=== PATIENT | female | born 1995 | race Caucasian/White ===

== ENCOUNTER → 2018-07-03 16:16 | Outpatient (CLI) | payer MEDICAID, SELFPAY ==
--- NOTE | 2018-07-03 16:25 | MRI_ITS ---
STUDY: MRI LUMBAR SPINE WITHOUT CONTRAST REASON FOR EXAM: Female, 23 years old. Left sciatica TECHNIQUE: Standardized fat and water weighted pulse sequences were obtained in the sagittal and axial planes. COMPARISON: None FINDINGS: T12-L1: Normal endplates. Normal disc height, hydration and morphology. Normal bilateral facet joints. Normal central canal and bilateral lateral recesses. Normal bilateral intervertebral neural foramina. Normal lumbar lordosis. There is no substantial scoliosis. Normal conus medullaris that terminates at L1 L1-2: Normal endplates. Normal disc height, hydration and morphology. Normal bilateral facet joints. Normal central canal and bilateral lateral recesses. Normal bilateral intervertebral neural foramina. L2-3: Normal endplates. Normal disc height, hydration and morphology. Normal bilateral facet joints. Normal central canal and bilateral lateral recesses. Normal bilateral intervertebral neural foramina. L3-4: Normal endplates. Normal disc height, hydration and minimal annular bulge. Normal bilateral facet joints. Normal central canal and bilateral lateral recesses. Normal bilateral intervertebral neural foramina. L4-5: Normal endplates. Normal disc height, desiccation and mild annular bulge in association with left posterolateral/foraminal disc protrusion.. Minor facet arthropathy. Normal central canal. Mild left lateral recess stenosis and moderate neuroforaminal stenosis. Mild right neuroforaminal encroachment L5-S1: Normal endplates. Normal disc height, hydration and morphology. Normal bilateral facet joints. Normal central canal and bilateral lateral recesses. Normal bilateral intervertebral neural foramina. Normal visualized sacral ala. Normal visualized paraspinous soft tissue structures. MRI/Spine Lumbar (Routine) IMPRESSION: Spinal stenosis at L4-5 greater on the left secondary to disc disease and mild facet arthropathy. Minimal annular bulge at L3-4 without spinal stenosis Electronically Signed: Sang Hernandez MD at 19:14 EST , Service support ,
== END ==
PROVIDERS: Family Provider Family Medicine; PCP Family Medicine; Referring Provider Family Medicine; Visit Provider Family Medicine
DX: M54.16 Radiculopathy, lumbar region (principal)
CPT/HCPCS: 72148

== ENCOUNTER → 2020-06-08 10:49 | Outpatient (CLI) | payer MEDICAID, SELFPAY ==
[2020-06-08 09:50] VITALS: BMI 33.5
[2020-06-08 10:55] VITALS: BP 125/74; PULSE 76; RESP 16; TEMP 37.2; O2SAT 95; BMI 33.5
[2020-06-08] MEDS: Dextrose 5%-Lactated Ringers 1,000 ML 999 ML IV (11:12)
[2020-06-08 18:20] LABS: Amphetamine Urine VISTA NEGATIVE (<1000 ng/mL); Barbiturate Urine VISTA NEGATIVE (< 200 ng/mL); Benzodiazepine Urine VISTA NEGATIVE (< 200 ng/mL); Cocaine Urine VISTA NEGATIVE (< 300 ng/mL); Ecstacy Urine VISTA NEGATIVE (< 500 ng/mL); Methadone Urine VISTA NEGATIVE (< 300 ng/mL); PCP Urine VISTA NEGATIVE (< 25 ng/mL); THC Urine VISTA NEGATIVE (< 50 ng/mL); Vista UDS pH Range 5
[2020-06-13 04:08] LABS: Chlamydia By Nucleic Acid AMP Negative (Negative)
[2020-06-13 07:41] LABS: Gonococcus By Nucleic Acid AMP Negative (Negative)
[2020-06-16 11:09] LABS: HPV APTIMA, High Risk Negative (Negative); HPV Reflexed? YES, CHARGE PATIENT
== END ==
PROVIDERS: PCP Family Medicine; Referring Provider Obstetrics & Gynecology; Visit Provider Obstetrics & Gynecology
DX: Z34.90 Encounter for supervision of normal pregnancy, unspecified, unspecified trimester (principal); Z12.4 Encounter for screening for malignant neoplasm of cervix; Z11.3 Encounter for screening for infections with a predominantly sexual mode of transmission; E86.0 Dehydration
CPT/HCPCS: 96361; 96374; 96375; 80307; 87086; 87088; 87491; 87591; 87624; 88175; G0145

== ENCOUNTER → 2020-06-26 09:09 | Outpatient (CLI) | payer MEDICAID, SELFPAY ==
[2020-06-08 10:55] VITALS: BMI 33.5
[2020-06-26 09:34] LABS: Absolute Lymphocyte Count 1.18 X10^3/uL (0.83-4.51); Absolute Neutrophil Count 6.4 X10^3/uL (2.0-7.7); Basophil# 0.02 X10^3/uL; Basophil% 0.2 % (0-1); Eosinophil# 0.12 X10^3/uL; Eosinophils% 1.5 % (0-5); Hematocrit 36.6 % (37-47); Hemoglobin 12.3 g/dL (12.0-15.0); Lymphocyte # 1.18 X10^3/ul (4.0); Lymphocyte % 14.4 % (19-41); Mean Corp Hgb Conc 33.6 g/dL (32-36); Mean Corpuscular Hgb 29.4 pg (27.0-32.0); Mean Corpuscular Volume 87.6 fL (81-99); Mean Platelet Vol. 9.4 fl (6.2-12.0); Monocyte# 0.41 X10^3/uL; NRBC Flagged by Analyzer 0 % (0-5); Neutrophil # 6.43 X10^3/uL (2.7-7.7); Neutrophil % 78.4 % (47-70); Platelet Count 242 K/mm3 (150-450); RBC Distribution Width CV 12.2 % (11.6-14.6); RBC Distribution Width SD 39.5 fl (35.1-43.9); Red Blood Count 4.18 M/mm3 (4.2-5.4); White Blood Count 8.2 K/mm3 (4.4-11.0)
[2020-06-26 09:43] LABS: Glucose Challenge Gest 1H 50g 127 mg/dL (70-140)
[2020-06-26 10:47] LABS: HIV - WCH Non-Reactive (Nonreactive); Hepatitis B Surface Antigen Non-Reactive (Nonreactive); Hepatitis C Antibody Non-Reactive (Nonreactive); Rubella IgG Reactive (Nonreactive); Syphilis Antibodies Non-reactive
== END ==
PROVIDERS: PCP Family Medicine; Referring Provider Obstetrics & Gynecology; Visit Provider Obstetrics & Gynecology
DX: Z34.81 Encounter for supervision of other normal pregnancy, first trimester (principal)
CPT/HCPCS: 36415; 82950; 85025; 86703; 86762; 86803; 86850; 86900; 86901; 87340

== ENCOUNTER → 2020-07-03 12:33 | Outpatient (CLI) | payer MEDICAID, SELFPAY ==
[2020-07-03 10:51] VITALS: BMI 33.5
[2020-07-03 13:17] LABS: Protein, Urine (Random) 8.9 mg/dL (<11.9); Protein:Creat Ratio 38 mg/g CRE (0-200)
== END ==
PROVIDERS: PCP Family Medicine; Referring Provider Obstetrics & Gynecology; Visit Provider Obstetrics & Gynecology
DX: O12.10 Gestational proteinuria, unspecified trimester (principal)
CPT/HCPCS: 82570; 84156

== ENCOUNTER → 2020-10-23 14:03 | Outpatient (CLI) | payer MEDICAID, SELFPAY ==
[2020-09-29 13:52] VITALS: BMI 35.5
[2020-10-23 14:25] LABS: Absolute Lymphocyte Count 1.13 X10^3/uL (0.83-4.51); Absolute Neutrophil Count 6.1 X10^3/uL (2.0-7.7); Basophil# 0.02 X10^3/uL; Basophil% 0.3 % (0-1); Eosinophil# 0.06 X10^3/uL; Eosinophils% 0.8 % (0-5); Hematocrit 33.1 % (37-47); Hemoglobin 11.2 g/dL (12.0-15.0); Lymphocyte # 1.13 X10^3/ul (0.83-4.51); Lymphocyte % 14.3 % (19-41); Mean Corp Hgb Conc 33.8 g/dL (32-36); Mean Corpuscular Hgb 29.2 pg (27.0-32.0); Mean Corpuscular Volume 86.2 fL (81-99); Mean Platelet Vol. 9.2 fl (6.2-12.0); Monocyte# 0.48 X10^3/uL; Monocyte% 6.1 % (0-10); NRBC Flagged by Analyzer 0 % (0-5); Neutrophil # 6.13 X10^3/uL (2.7-7.7); Neutrophil % 77.7 % (47-70); Platelet Count 258 K/mm3 (150-450); RBC Distribution Width CV 12.3 % (11.6-14.6); RBC Distribution Width SD 38.5 fl (35.1-43.9); Red Blood Count 3.84 M/mm3 (4.2-5.4); White Blood Count 7.9 K/mm3 (4.4-11.0)
[2020-10-23 14:42] LABS: Glucose Challenge Gest 1H 50g 117 mg/dL (70-140)
== END ==
PROVIDERS: PCP Family Medicine; Referring Provider Obstetrics & Gynecology; Visit Provider Obstetrics & Gynecology
DX: Z13.1 Encounter for screening for diabetes mellitus (principal); Z3A.25 25 weeks gestation of pregnancy
CPT/HCPCS: 36415; 82950; 85025

== ENCOUNTER → 2020-12-15 15:33 | Outpatient (CLI) | payer MEDICAID, SELFPAY | PROVIDERS: PCP Family Medicine; Referring Provider Obstetrics & Gynecology; Visit Provider Obstetrics & Gynecology | DX: Z34.90 Encounter for supervision of normal pregnancy, unspecified, unspecified trimester (principal) | CPT/HCPCS: 87081 ==

== ENCOUNTER 2021-01-02 17:50 | Outpatient (CLI) | payer MEDICAID, SELFPAY ==
[2021-01-02] VITALS (8 sets, daily range): BP systolic 121–128; BP diastolic 70–77; PULSE 65–148; TEMP 36.2–36.5; O2SAT 82–98; BMI 36.7
--- NOTE | 2021-01-02 21:17 | OB.TRI.PN ---
Progress Notes Date of Service: 01/02/21 Progress Note: Patient presents for triage evaluation secondary to dec fm and ctx FHT: 130 Moderate variability reactive no decelerations category I tracing [place]: q 3-5 Contractions Assessment and plan: dec fm feeling some now Reactive NST, reassuring maternal and status patient discharged to home to follow-up as scheduled, discussedkick counts and labor precautions no significant cervical change. See problem list details for additional plan information. Charges/Coding Procedures Urinary/Genital 52xxx-59xxx: [id number] non-stress test Interp Assessment & Plan (1) False labor:
== END 2021-01-02 21:30 | disposition home or self-care (01) ==
LOC: WPOUT 17:58 → WP 17:59
PROVIDERS: PCP Family Medicine; Visit Provider Obstetrics & Gynecology
DX: O47.9 False labor, unspecified (principal); Z3A.00 Weeks of gestation of pregnancy not specified
CPT/HCPCS: 59050; 99218; G0378

== ENCOUNTER 2021-01-06 23:30 | Inpatient (IN) | payer MEDICAID, SELFPAY ==
[2021-01-06 23:03] VITALS: BP 119/72; PULSE 80; TEMP 36.6; O2SAT 98
[2021-01-06 23:05] VITALS: BMI 35.7
[2021-01-06 23:29] LABS: ROM Internal Control Test YES-OK TO RESULT pt. (Internal QC)
[2021-01-06 23:30] LABS: ROM Patient Test POSITIVE (Negative)
[2021-01-07] VITALS (47 sets, daily range): BP systolic 101–136; BP diastolic 55–85; PULSE 67–181; RESP 16–18; TEMP 36–36.9; O2SAT 96–100
[2021-01-07 00:22] LABS: Absolute Lymphocyte Count 1.41 X10^3/uL (0.83-4.51); Absolute Neutrophil Count 6.5 X10^3/uL (2.0-7.7); Basophil# 0.01 X10^3/uL; Basophil% 0.1 % (0-1); Eosinophil# 0.04 X10^3/uL; Eosinophils% 0.5 % (0-5); Hematocrit 31.1 % (37-47); Hemoglobin 9.9 g/dL (12.0-15.0); Lymphocyte # 1.41 X10^3/ul (0.83-4.51); Lymphocyte % 16.5 % (19-41); Mean Corp Hgb Conc 31.8 g/dL (32-36); Mean Corpuscular Hgb 26.2 pg (27.0-32.0); Mean Corpuscular Volume 82.3 fL (81-99); Mean Platelet Vol. 10.3 fl (6.2-12.0); Monocyte# 0.53 X10^3/uL; Monocyte% 6.2 % (0-10); NRBC Flagged by Analyzer 0 % (0-5); Neutrophil # 6.51 X10^3/uL (2.7-7.7); Neutrophil % 76.2 % (47-70); Platelet Count 284 K/mm3 (150-450); RBC Distribution Width CV 13.7 % (11.6-14.6); RBC Distribution Width SD 40.6 fl (35.1-43.9); Red Blood Count 3.78 M/mm3 (4.2-5.4); White Blood Count 8.5 K/mm3 (4.4-11.0)
[2021-01-07] MEDS: Lactated Ringers 500 ML 999 ML IV ×2 (02:01→12:01)
[2021-01-07] MEDS: Lactated Ringers 1,000 ML 200 ML IV ×3 (02:32→12:36)
[2021-01-07] MEDS: fentaNYL-bupivacaine (epidural) 100 ML BAG EPIDURAL ×3 (02:47→12:02)
[2021-01-07] MEDS: Oxytocin 30 units/NS 500 ml 30 UNITS/500 ML IV.SOLN IV (04:17)
--- NOTE | 2021-01-07 06:39 | HP.PCM.OB_ITS ---
HPI - General General Date of Admission: 01/06/21 HPI Narrative LATISHA MCKEON, is a 25 F who presents with clear spontaneous rupture membranes irregular contractions no bleeding or loss of fluid Maternal Data Information MARYA Calculator Estimated Delivery Date Method Current WG Current Estimate 01/09/21 LMP (Uncertain) 39w 5d Other Estimates 01/12/21 Ultrasound #1 39w 2d PFSH PFSH Medical History FARHEEN III (cervical intraepithelial neoplasia grade III) with severe dysplasia (~09/2014) Low grade squamous intraepithelial lesion (LGSIL) at risk for high grade squamous intraepithelial lesion (HGSIL) on cytologic smear of cervix (~08/2014) Supervision of high risk , antepartum Home Medications NK 01/06/21 [History Last Taken Unknown] Allergy/AdvReac Type Severity Reaction Status Date / Time No Known Allergies Allergy Verified 01/06/21 23:07 Family History Mother Hypertension Father Hypertension Grandfather Cancer Surgical History History of back surgery (~2018) History of eye surgery (~1995) Hx LEEP (loop electrosurgical excision procedure), cervix, (~2014) Social History household members: family housing: house number of children: 2 current occupational status: unemployed Smoking Status: Former smoker second hand exposure: Yes alcohol intake: never substance use type: does not use seatbelt use: always do you feel safe at home: Yes 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 Date Name GA/Weeks Outcome Route Bth Weight Gen Labor Lgth Anesthesia Del Locatn Provider FOB 08/05/15 Shen 37 live - full term 7lbs 4oz Female 23 hours epidural [facility] JDana- [facility] Clem Delivery Date: 08/05/15 cervical length checks; 1st degree laceration Gabrielle العراقي Visit Details Expected Delivery Route/Plan Labor Preferences- CB/BF classes: no labor support person: Clem labor intervention preferences: open to standard interventions pain management options preferred: desires natural but open to epidural cut cord/dad catch: both : [] PP control planned: [] discussed possible routes of delivery and associated risks: [] special requests: [] Plans flu vaccine: [] tdap vaccine: given rhogam: na LARC form signed: movement and labor precautions reviewed. Problem list reviewed and updated with the most current plan of care details and appropriate orders placed. Relevant counseling for the gestational age provided. Continue routine care and follow up unless otherwise noted in visit not es/problem list details OB Flowsheet Initial Weight: 208 lb Date -?-?-?-?-?-?-?-?-?-?-?-?- EGA Weight BP Urine Prot -?-?-?-?-?-?-?-?-?-?-?-?- Glucose FHR FuHt Pres Dilation -?-?-?-?-?-?-?-?-?-?-?-?- Effaced St Visit Note 06/08/20 -?-?-?-?-?-?-?-?-?-?-?-?- 9w 2d 208 lb (+0 oz) 114/82 -?-?-?-?-?-?-?--?-?-?-?-?- 175 -?-?-?-?-?-?-?-?-?-?-?-?- GP - CRL 20mm co nsistent with MAYRA of 01/1207/03/20 -?-?-?-?-?-?-?-?-?-?-?-?- 12w 6d 208 lb (+0 oz) 112/74 2+ -?-?-?-?-?-?-?-?-?-?-?-?- Negative 160 -?-?-?-?-?-?-?-?-?-?-?-?- SM- SM- no vb lof cramping doing well 07/31/20 -?-?-?-?-?-?-?-?-?-?-?-?- 16w 6d 211 lb 4 oz (+3 lb 4 oz) 122/78 Negative -?-?-?-?-?-?-?-?-?-?-?-?- Negative 148 -?-?-?-?-?-?-?-?-?-?-?-?- MH-no VB, LOF. H ad CL US today prior to this appt. Declines AFP 08/28/20 -?-?-?-?-?-?-?-?-?-?-?-?- 20w 6d 216 lb (+8 lb) 108/76 Negative -?-?-?-?-?-?-?-?-?-?-?-?- Negative 140 20 -?-?-?-?-?-?-?-?-?-?-?-?- SM- no vb lof go od fm no regualr ctx still having back pain declines additional intervention 09/29/20 -?-?-?-?-?-?-?-?-?-?-?-?- 25w 3d 220 lb 4 oz (+12 lb 4 oz) 118/82 Negative -?-?-?-?-?-?--?-?-?-?-?-?- Negative 140 25 -?-?-?-?-?-?-?-?-?-?-?-?- GP - no LOF, VB, DFM, ctx. GCT next visit. 10/23/20 -?-?-?-?-?-?-?-?-?-?-?-?- 28w 6d 219 lb (+11 lb) 122/82 Negative -?-?-?-?-?-?-?-?-?-?-?-?- Negative 140 28 -?-?-?-?-?-?-?-?-?-?-?-?- SM- no vb lof go od fm no reuglar ctx. anesthesia consult due to back surgery history. pepcid ordered 11/10/20 -?-?-?-?-?-?-?-?-?-?-?-?- 31w 3d 221 lb (+13 lb) 112/70 Negative -?-?-?-?-?-?-?-?-?-?-?-?- Negative 140 31 -?-?-?-?-?-?-?-?-?-?-?-?- SM- no vb lof go od fm n oregular ctx 11/24/20 -?-?-?-?-?-?-?-?-?--?-?-?- 33w 3d 223 lb 8 oz (+15 lb 8 oz) 130/74 Negative -?-?-?-?-?-?-?-?-?-?-?-?- Negative 130 33 -?-?-?-?-?-?-?-?-?-?-?-?- GP - no LOF, VB, DFM, ctx. Discussed increased fluids, electrolytes, and magnesium to help with kristina horses 12/08/20 -?-?-?-?-?-?-?-?-?-?-?-?- 35w 3d 224 lb (+16 lb) 136/82 Negative -?-?-?-?-?-?-?-?-?-?-?-?- Negative 135 35 -?-?-?-?-?-?-?-?-?-?-?-?- GP - no LOF, VB, DFM, ctx. Discussed labor preferences 12/15/20 -?-?-?-?-?-?-?-?-?-?-?-?- 36w 3d 226 lb (+18 lb) 102/84 Negative -?-?-?-?-?-?-?-?-?-?-?-?- Negative 145 35 Cephalic 1 -?-?-?-?-?-?-?-?-?-?-?-?- -2 SM- no v b lof good fm no reuglar ctx 12/21/20 -?-?-?-?-?-?-?-?-?-?-?-?- 37w 2d 228 lb 8 oz (+20 lb 8 oz) 128/84 Negative -?-?-?-?-?-?-?-?-?-?-?-?- Negative 130 37 Cephalic 2 -?-?-?-?-?-?-?-?-?-?-?-?- 50 -2 GP - no LO F, VB, DFM, ctx. Denies complaints. 12/29/20 -?-?-?-?-?-?-?-?-?-?-?-?- 38w 3d 228 lb 6 oz (+20 lb 6 oz) 130/86 Negative -?-?-?-?-?-?-?-?-?-?-?-?- Negative 145 38 Cephalic 2 -?-?-?-?-?-?-?-?-?-?-?-?- 50 -2 GP - no LO F , VB, DFM, ctx. Moving this weekend. Strongly desires delivery by due date if possible. 01/05/21 -?-?-?-?-?-?-?-?-?-?-?-?- 39w 3d 231 lb (+23 lb) 116/80 Negative -?-?-?-?-?-?-?-?-?-?-?-?- Negative 145 40 3 -?-?-?-?-?-?-?-?-?-?-?-?- Sm- no vb lof go od fm no regular ctx membranes swept Sm- no vb lof good fm no reg ular ctx membranes swept. discussed sterilization plan 6+ weeks, will need to sign title 19 01/06/21 -?-?-?-?-?-?-?-?-?-?-?-?- 39w 4d 221 lb 6.4 oz (+13 lb 6.4 oz) 119/72 124/69 136/85 129/83 123/75 126/71 114/63 109/64 114/65 119/65 116/56 109/58 106/58 106/55 106/60 -?-?-?-?-?-?-?-?-?-?-?-?- -?-?-?-?-?-?-?-?-?-?-?-?- NST FHR Rate Baby A Baseline: 140 Variability:: Moderate Accelerations:: 15 x 15 Decelerations:: None NST Reactive:: Yes FHR Category:: Category I Uterine Activity:: q3-5 ROS Constitutional Constitutional: Reports systems reviewed and no addt'l complaints, except as documented ENT HEENT: Reports systems reviewed and no addt'l complaints, except as documented Cardiovascular Cardiovascular: Reports systems reviewed and no addt'l complaints, except as documented Respiratory/Chest Respiratory/Chest: Reports systems reviewed and no addt'l complaints, except as documented Gastrointestinal Gastrointestinal: Reports systems reviewed and no addt'l complaints, except as documented and nausea; Denies abdominal pain Genitourinary Genitourinary: Reports systems reviewed and no addt'l complaints, except as documented, contractions Details: present and frequency (regular ) and movement Details: present Musculoskeletal Musculoskeletal: Reports systems reviewed and no addt'l complaints, except as documented Integumentary Integumentary: Reports as per HPI Neurologic Neurologic: Reports systems reviewed and no addt'l complaints, except as documented Endocrine Endocrinology: Reports systems reviewed and no addt'l complaints, except as documented Vital Signs Vital Signs Vital Signs: 01/06/21 23:03 01/07/21 02:11 01/07/21 02:30 Temperature 97.9 F 97.5 F L Temperature Source Temporal Temporal Pulse Rate 80 83 181 H Blood Pressure 119/72 124/69 H BP Systolic 119 124 BP Diastolic 72 69 Pulse Ox 98 99 100 01/07/21 02:35 01/07/21 02:37 01/07/21 02:40 Temperature Temperature Source Pulse Rate 89 83 Blood Pressure 136/85 H BP Systolic 136 BP Diastolic 85 Pulse Ox 99 100 01/07/21 02:41 01/07/21 02:45 01/07/21 02:46 Temperature Temperature Source Pulse Rate 80 78 86 Blood Pressure 129/83 H 123/75 H BP Systolic 129 123 BP Diastolic 83 75 Pulse Ox 98 01/07/21 02:50 01/07/21 02:51 01/07/21 02:55 Temperature Temperature Source Pulse Rate 78 85 87 Blood Pressure 126/71 H BP Systolic 126 BP Diastolic 71 Pulse Ox 97 98 01/07/21 02:56 01/07/21 03:00 01/07/21 03:01 Temperature Temperature Source Pulse Rate 82 81 Blood Pressure 114/63 109/64 BP Systolic 114 109 BP Diastolic 63 64 Pulse Ox 97 01/07/21 03:05 01/07/21 03:06 01/07/21 03:10 Temperature Temperature Source Pulse Rate 88 92 Blood Pressure 114/65 BP Systolic 114 BP Diastolic 65 Pulse Ox 98 98 01/07/21 03:12 01/07/21 03:15 01/07/21 03:16 Temperature Temperature Source Pulse Rate 88 78 86 Blood Pressure 119/65 116/56 L BP Systolic 119 116 BP Diastolic 65 56 Pulse Ox 98 01/07/21 03:20 01/07/21 03:21 01/07/21 03:25 Temperature Temperature Source Pulse Rate 76 75 84 Blood Pressure 109/58 L BP Systolic 109 BP Diastolic 58 Pulse Ox 98 98 01/07/21 03:54 01/07/21 05:00 01/07/21 05:42 Temperature 97.5 F L 96.8 F L 97.5 F L Temperature Source Temporal Temporal Temporal Pulse Rate 69 71 Blood Pressure 106/58 L 106/55 L BP Systolic 106 106 BP Diastolic 58 55 Pulse Ox 97 96 01/07/21 05:43 Temperature Temperature Source Pulse Rate 75 Blood Pressure 106/60 BP Systolic 106 BP Diastolic 60 Pulse Ox Weight Weight: 221 lb 6.4 oz Body Mass Index (BMI) 35.7 Physical Exam Const alert, oriented x3 and healthy appearing Constitutional Narrative: uncomfortable with contractions HEENT normocephalic and moist oral mucous membranes Head and Scalp: atraumatic Neck full ROM, no lymphadenopathy, supple and thyroid normal General: trachea midline Thyroid: thyroid normal Lymph Lymphatic: no lymphadenopathy noted Chest inspection of chest normal Resp normal respiratory effort Cardio regular rate GI normal to inspection, nondistended, normoactive bowel sounds, soft to palpation and non-tender Inspection: gravid external exam normal Bimanual Exam - Vag & Uterus: uterus non-tender Manual OB Exam: estimated gestational size appropriate, presentation cephalic, dilated, effaced and station Extremity normal to inspection General Extremity: Negative for edema Skin no rashes or lesions noted Neuro deep tendon reflexes 2+ bilaterally Motor Exam: strength 5/5 throughout and clonus absent Psych mental status grossly normal Labs Labs Labs: Blood Type O POSITIVE Antibody Screen NEGATIVE Hct 31.1 % (37-47) L Hgb 9.9 g/dL (12.0-15.0) L Syphilis Total Ab Non-reactive Rubella IgG Antibody Reactive (Nonreactive) Hep Bs Antigen Non-Reactive (Nonreactive) Neisseria gonorrhoeae DNA (CLEMENT) Negative (Negative) HIV 1&2 Antibody Non-Reactive (Nonreactive) Glucose 1 Hr 50 gm 117 mg/dL (70-140) Group B Strep DNA Negative (Negative) Miscellaneous Test Assessment & Plan (1) Request for sterilization: COMMENT: needs title 19 signed. plan after 6 weeks PP (2) Obesity affecting : QUALIFIERS: Trimester: third trimester Qualified Code(s): O99.213 - Obesity complicating , third trimester COMMENT: NOB 1 hr GCt nl (3) ASCUS of cervix with negative high risk HPV: (4) History of herniated intervertebral disc: COMMENT: Had surgery in 2019 in lower back. No issues with epidural last , but had surgery after last delivery. Plan anesthesia consult. (5) Supervision of high risk , antepartum: COMMENT: PRR MAYRA: 01/12/2021 girl Adolfo PC: Shen Spouse: Clem (Quiroz age 7) (6) : QUALIFIERS: Weeks of gestation: 39 weeks Qualified Code(s): Z3A.39 - 39 weeks gestation of COMMENT: genetic- low risk and carrier testing- neg . declined afp screen. anatomy reviewed. GBS neg (7) Hx LEEP (loop electrosurgical excision procedure), cervix, : QUALIFIERS: Trimester: first trimester Qualified Code(s): O34.41 - Maternal care for other abnormalities of cervix, first trimester; Z98.890 - Other specified postprocedural states COMMENT: Plan CL q2w at 16 weeks, CL nl on 09/11 33.0mm (8) PROM (premature rupture of membranes): QUALIFIERS: PROM onset of labor timing: unspecified duration between rupture of membranes and onset of labor PROM gestational age: full term Qualified Code(s): O42.92 - Full-term premature rupture of membranes, unspecified as to length of time between rupture and onset of labor PLAN: Patient presents with PROM, plan management for with pitocin. Pain management: plans epidural. GBS negative. Management of any complications: none I have reviewed the [facility] and made any clinically relevant updates.
[2021-01-07] MEDS: Oxytocin 30 units/NS 500 ml 30 UNITS/500 ML IV.SOLN 334 UNITS IV (13:39)
--- NOTE | 2021-01-07 13:50 | OP.PCM_ITS ---
Assessment & Plan (1) PROM (premature rupture of membranes): QUALIFIERS: PROM onset of labor timing: unspecified duration between rupture of membranes and onset of labor PROM gestational age: full term Qualified Code(s): O42.92 - Full-term premature rupture of membranes, unspecified as to length of time between rupture and onset of labor (2) Obesity affecting : QUALIFIERS: Trimester: third trimester Qualified Code(s): O99.213 - Obesity complicating , third trimester COMMENT: NOB 1 hr GCt nl (3) ASCUS of cervix with negative high risk HPV: (4) History of herniated intervertebral disc: COMMENT: Had surgery in 2019 in lower back. No issues with epidural last , but had surgery after last delivery. Plan anesthesia consult. (5) Supervision of high risk , antepartum: COMMENT: PRR MAYRA: 01/12/2021 nick Mata PC: Jordinnatan Spouse: Clem (Quiroz age 7) (6) : QUALIFIERS: Weeks of gestation: 39 weeks Qualified Code(s): Z3A.39 - 39 weeks gestation of COMMENT: genetic- low risk and carrier testing- neg . declined afp screen. anatomy reviewed. GBS neg (7) Hx LEEP (loop electrosurgical excision procedure), cervix, : QUALIFIERS: Trimester: first trimester Qualified Code(s): O34.41 - Maternal care for other abnormalities of cervix, first trimester; Z98.890 - Other specified postprocedural states COMMENT: Plan CL q2w at 16 weeks, CL nl on 09/11 33.0mm (8) Vaginal delivery: COMMENT: PROM SM 39 Adolfo girl Maternal Data Information MAYRA Calculator Estimated Delivery Date Method Current WG Current Estimate 01/09/21 LMP (Uncertain) 39w 5d Other Estimates 01/12/21 Ultrasound #1 39w 2d Vaginal Delivery Operative Information Pre-Operative Diagnosis: IAL Post-Operative Diagnosis: same Surgery / Procedure Performed: Spontaneous Vaginal Delivery Type of Anesthesia: Epidural Special Medications: none Estimated Blood Loss: 100 Fluids Replaced: crystalloid Findings Description of Procedure: Patient began pushing and delivered the head in the VICKY presentation. The head was delivered atraumatically and a loose nuchal cord ?1 was identified and the delivered through without complication. The anterior and posterior shoulders delivered without complication followed by the rest of the infant and the was placed on the maternal abdomen. Delayed cord clamping was employed for approximately 60 seconds. Cord was clamped and cut and gentle traction was applied to the cord and the placenta delivered spontaneously immediately following it was noted to be intact with three-vessel cord. The perineum and vagina were inspected and noted to have no laceration. EBL was 100 cc. Patient and infant tolerated delivery well. Presentation: VICKY Amniotic Membrane Rupture Type: Spontaneous Amniotic Fluid Description: Clear Placental Delivery Description: Spontaneous Placenta Disposition: [facility] Cord Vessel Description: 3 Vessels Cord Entanglement: Around neck x 1, loose A Gender: Female Delayed Cord Clamping: Yes Post Vaginal Delivery Medications Given After Delivery: IV Pitocin Episiotomy Description: None Laceration: None Complication Complications: None Procedures Urinary/Genital 52xxx-59xxx: [id number] Vaginal Delivery [facility]
--- NOTE | 2021-01-07 13:52 | PCM.DC ---
Discharge Instructions Diet Discharge Diet: No restrictions Activity Discharge Activity: Return to Normal Activity, May Not Drive (while taking narcotic pain medications.) and May Shower May resume sexual activity in: 4-6 weeks Dressing / Incision Call your doctor if your incision/area has: Continuous Slow Oozing, Sudden Increased Bleeding, Increased Pain/ Swelling, Increased Redness and Foul Smelling Discharge Follow Up Care Please Follow Up With: Adriane Lord MD When: Call [phone] to make an appointment with your doctor in 6 weeks. If you had elevated blood pressure or 4th degree laceration, you will need to be seen in 2 weeks. Test Results: Test results from this visit will be discussed in further detail at your follow-up appointment, if applicable. Discharge Plan Admission Admit Date/Time: 01/06/21 23:30 Attending Provider: Adriane Lord Primary Care Provider: Mustapha Espinosa Discharge Orders/Prescriptions Prescriptions: No Action NK RF: 0
[2021-01-07] MEDS: 0.9% Saline Lock 10 ML Syringe IV ×2 (16:18)
[2021-01-07] MEDS: Acetaminophen 500 MG Tablet 1000 MG PO (18:20)
[2021-01-07] MEDS: Naproxen 500 MG Tablet PO (22:25)
[2021-01-08] MEDS: Acetaminophen 500 MG Tablet 1000 MG PO ×2 (00:27→12:59)
--- NOTE | 2021-01-08 00:42 | NURSING ---
Report received, taking over mother and care at this time.
[2021-01-08 00:50] VITALS: BP 122/73; PULSE 69; RESP 18; TEMP 36.4; O2SAT 99
[2021-01-08 04:18] VITALS: BP 113/70; PULSE 63; RESP 16; TEMP 36.4; O2SAT 97
[2021-01-08] MEDS: Naproxen 500 MG Tablet PO (06:41)
[2021-01-08 07:45] VITALS: BP 134/91; PULSE 82; RESP 16; TEMP 36.3; O2SAT 98
--- NOTE | 2021-01-08 12:27 | PCM.PN.OB ---
Subjective Subjective Patient doing well without complaints. Tolerating PO. Ambulating and voiding without difficulty. feeding well. Denies chest pain, shortness of breath, calf pain/swelling, fevers, chills, lightheadedness. Objective Data Objective Data Vital Signs: Vital Signs Temp Pulse Resp BP Pulse Ox 97.4 F L 82 16 134/91 H 98 01/08/21 07:45 01/08/21 07:45 01/08/21 07:45 01/08/21 07:45 01/08/21 07:45 Oxygen Delivery Method Room Air Weight: 221 lb 6.4 oz Body Mass Index (BMI) 35.7 Intake & Output: Intake and Output for Last 24 Hours 01/06/21 01/07/21 01/08/21 23:59 23:59 23:59 Intake Total 4419.90 / 4419.90 Output Total 2325 / 2325 Balance 2094.90 / 2094.90 Lab / Micro Data Result Diagrams: 01/07/21 00:00 Micro: Microbiology 01/07/21 00:00 Nasal Secretion SARS-CoV-2 Antigen (Rapid) - Final ROS Constitutional Constitutional: Reports systems reviewed and no addt'l complaints, except as documented Cardiovascular Cardiovascular: Reports systems reviewed and no addt'l complaints, except as documented Respiratory/Chest Respiratory/Chest: Reports systems reviewed and no addt'l complaints, except as documented Gastrointestinal Gastrointestinal: Reports systems reviewed and no addt'l complaints, except as documented Physical Exam Const alert, oriented x3 and no apparent distress HEENT Head and Scalp: atraumatic Resp normal respiratory effort GI soft to palpation and non-tender Bimanual Exam - Vag & Uterus: uterus non-tender Uterus Palpation: uterus fundus firm (below Umbilicus)
[2021-01-08 12:45] VITALS: BP 122/82; PULSE 64; RESP 16; TEMP 36.2
== END 2021-01-08 16:00 | disposition home or self-care (01) | DRG 560 ==
LOC: WPOUT 23:36 → WP 23:36
PROVIDERS: Admitting Provider Obstetrics & Gynecology; PCP Family Medicine; Visit Provider Obstetrics & Gynecology
DX: O42.92 Full-term premature rupture of membranes, unspecified as to length of time between rupture and onset of labor (principal); O69.81X0 Labor and delivery complicated by cord around neck, without compression, not applicable or unspecified; Z3A.39 39 weeks gestation of pregnancy; Z37.0 Single live birth; Z87.891 Personal history of nicotine dependence; O99.214 Obesity complicating childbirth; E66.9 Obesity, unspecified
CPT/HCPCS: 59025; 59050; 84112; 85025; 86850; 86900; 86901; 87426; 99218; J7120; A4216; G0378

== ENCOUNTER → 2022-01-02 | Outpatient (CLI) | payer MEDICAID, SELFPAY ==
[2022-01-08 15:04] LABS: HPV APTIMA, High Risk Negative (Negative)
== END | disposition home or self-care (01) ==
LOC: LABSPEC 16:13
PROVIDERS: PCP Family Medicine; Referring Provider Obstetrics & Gynecology; Visit Provider Obstetrics & Gynecology
DX: R35.0 Frequency of micturition (principal); Z12.4 Encounter for screening for malignant neoplasm of cervix
CPT/HCPCS: 87086; 87088; 87624; 88175; G0145

== ENCOUNTER → 2022-09-30 | Outpatient (CLI) | payer MEDICAID, SELFPAY ==
[2022-09-30 12:06] LABS: Absolute Lymphocyte Count 1.23 X10^3/uL (0.83-4.51); Absolute Neutrophil Count 5.7 X10^3/uL (2.0-7.7); Basophil# 0.03 X10^3/uL; Basophil% 0.4 % (0-1); Eosinophil# 0.13 X10^3/uL; Eosinophils% 1.7 % (0-5); Hemoglobin 13.1 g/dL (12.0-15.0); Lymphocyte # 1.23 X10^3/ul (0.83-4.51); Lymphocyte % 16.2 % (19-41); Mean Corp Hgb Conc 32.8 g/dL (32-36); Mean Corpuscular Hgb 29.2 pg (27.0-32.0); Mean Corpuscular Volume 89.3 fL (81-99); Mean Platelet Vol. 9.8 fl (6.2-12.0); Monocyte# 0.45 X10^3/uL; Monocyte% 5.9 % (0-10); NRBC Flagged by Analyzer 0 % (0-5); Neutrophil # 5.68 X10^3/uL (2.7-7.7); Platelet Count 343 K/mm3 (150-450); RBC Distribution Width CV 13.2 % (11.6-14.6); RBC Distribution Width SD 43.2 fl (35.1-43.9); Red Blood Count 4.48 M/mm3 (4.2-5.4); White Blood Count 7.6 K/mm3 (4.4-11.0)
[2022-09-30 12:31] LABS: T4 Free Direct 1.18 ng/dL (0.76-1.46); Thyroid Stim Hormone (TSH) 2.57 uIU/mL (0.358-3.74)
== END | disposition home or self-care (01) ==
LOC: BFHLAB 09:31
PROVIDERS: PCP Family Medicine; Referring Provider Family Medicine; Visit Provider Family Medicine
DX: Z00.00 Encounter for general adult medical examination without abnormal findings (principal)
CPT/HCPCS: 36415; 84439; 84443; 85025